=== PATIENT | male | born 1955 | race Caucasian/White ===

== ENCOUNTER 2020-05-19 15:10 | Emergency (ER) | payer MEDICARE ==
[~2020-05-19] VITALS: Ht 172.7 cm; Wt 80.2 kg
[2020-05-19 15:42] VITALS: BP 142/82
--- NOTE | 2020-05-19 19:38 | NUR ---
pt called to room from lobby
--- NOTE | 2020-05-19 20:00 | NUR ---
PT SITTING UPRIGHT ON GURNEY. NAD, VSS. PT PROVIDED BLANKET. NO ADDITIONAL NEEDS AT THIS TIME. CALL LIGHT AND PERSONAL BELONGINGS WITHIN REACH.
--- NOTE | 2020-05-19 20:53 | NUR ---
Patient given discharge instructions and they have confirmed that they understand the instructions. Patient ambulatory with steady gait.
== END 2020-05-19 20:56 | disposition home or self-care (01) ==
LOC: ED 19:52
DX: S39.012A Strain of muscle, fascia and tendon of lower back, initial encounter (principal); R20.2 Paresthesia of skin; X58.XXXA Exposure to other specified factors, initial encounter; Y93.89 Activity, other specified; Y92.89 Other specified places as the place of occurrence of the external cause; Y99.8 Other external cause status
CPT/HCPCS: 93970; 99284

== ENCOUNTER 2020-07-11 08:31 | Outpatient (CLI) | payer MEDICARE | END 2020-07-11 23:59 | disposition home or self-care (01) | LOC: CARD 08:31 | PROVIDERS: ATTEND Nurse Practitioner Primary Care | DX: G62.9 Polyneuropathy, unspecified (principal); R20.0 Anesthesia of skin | CPT/HCPCS: 95886; 95909 ==